=== PATIENT | male | born 1960 | race Caucasian/White ===

== ENCOUNTER 2018-10-08 08:33 | Inpatient (IN) ==
[2018-10-08] MEDS ORDERED: VANCOMYCIN 1 GM/NS 1 GM/250 ML IVPB IV ONE (09:27)
[2018-10-08] MEDS ORDERED: KEFZOL 1 GM/D5W 1 GM/50 ML IVPB IV ONE (09:28)
[2018-10-08] MEDS ORDERED: MARCAINE 0.5% PF INJ ONE (09:32)
--- NOTE | 2018-10-08 09:37 | Diag Imaging Result Doc PS360 ---
EXAM: ELBOW COMPLETE RIGHT - 10/08/2018 HISTORY: right elbow pain and swelling TECHNIQUE: Right elbow three views COMPARISON: None. FINDINGS: There is soft tissue swelling posteriorly. There is no fracture, dislocation, or distal humeral fat pad elevation identified. There are no erosive or destructive changes identified. There are early degenerative changes. IMPRESSION: Soft tissue swelling posteriorly. Early degenerative changes. No visible acute bony abnormality. Electronically signed by Alejandro Alvarado 10/08/2018 9:35 AM
--- NOTE | 2018-10-08 09:39 | Diag Imaging Result Doc PS360 ---
EXAM: FOREARM-RIGHT - 10/08/2018 HISTORY: right forearm swelling TECHNIQUE: Right forearm two views COMPARISON: None. FINDINGS: There is soft tissue swelling which is most conspicuous at the proximal dorsal forearm. There is no opaque foreign body identified. There are no bony erosive or destructive changes identified. There is no fracture identified. IMPRESSION: Soft tissue swelling. No visible acute bony abnormality. Electronically signed by Alejandro Alvarado 10/08/2018 9:37 AM
[2018-10-08 09:42] LABS: BASO# 0.05 X1000 (0.0-0.2); BASO% 0.2 % (0.0-0.8); EOS# 0.06 X1000 (0.0-0.7); EOS% 0.3 % (0.0-10.0); HEMATOCRIT 50.4 % (42.0-52.0); HEMOGLOBIN 18.1 g/dL (14.0-18.0); IMM GRAN# 0.12 X1000 (0.0-0.04); IMM GRAN% 0.5 % (0.0-0.5); LYMPH# 1.14 X1000 (1.2-3.4); LYMPH% 5.2 % (20.5-51.1); MCH 33.5 PG (27-31); MCHC 35.9 g/dL (33-37); MCV 93.3 FL (81-99); MONO# 1.17 X1000 (0.11-0.59); MONO% 5.3 % (1.7-9.3); NEUT# 19.44 X1000 (1.4-6.5); NEUT% 88.5 % (42.2-75.2); PLT 266 X1000 (130-400); RDW 11.9 % (11.5-14.5); WBC 21.98 X1000 (4.8-10.8)
[2018-10-08] MEDS ORDERED: DILAUDID IV ONE (09:42)
[2018-10-08 10:05] LABS: AGAP 16; ALB/GLOB RATIO 0.8; ALBUMIN 3.8 g/dL (3.5-5.0); ALKALINE PHOSPHATASE 153 U/L (32-122); BUN 12 mg/dL (8-22); CALCIUM 9.2 mg/dL (8.8-10.2); CHLORIDE 90 mmol/L (98-107); COSMO 278; CREATININE 0.7 mg/dL (0.7-1.2); ESTIMATED GFR > 60; GOT 13 U/L (10-34); GPT 22 U/L (10-44); POTASSIUM 4.3 mmol/L (3.5-5.1); SODIUM 130 mmol/L (136-145); TCO2 24 mmol/L (25-35); TOTAL BILIRUBIN 1.29 mg/dL (0.20-1.00); TOTAL PROTEIN 8.4 g/dL (6.3-8.3)
[2018-10-08 10:07] LABS: GLUCOSE 416 mg/dL (70-104)
--- NOTE | 2018-10-08 10:07 | PROVIDER DOCUMENTATION ---
This chart was entered by Amberly Cortez Scribe, acting as scribe for Roger Meza MD. HPI-Musculoskeletal Pain/Inj - GENERAL Chief Complaint: Extremity Pain Stated Complaint: RT ARM PAIN Time Seen by Provider: 10/08/18 08:50 Source: patient - HX OF PRESENT ILLNESS-MUSKULOSKELTAL Nature of Presenting Problem: 58 y/o male presents to the ED with complaint of swelling, redness, and pain to right upper extremity now with fever and chills/cold sweats as well as mild nausea. The patient states he was treated in [place] with Clindamycin prescribed ten days ago without improvement so this was stopped and he then received steroid injections with some improvement but not relief of symptoms. No open wound and the patient is not on blood thinners. 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 Allergy to sodium phentyiol. Quality of Pain: reports: fullness, pressure Onset/Duration: gradual Timing: still present Modifying Factors: worse with: movement Any recent injury?: No Locality of Occurance: Home Similar Symptoms Previously?: Yes Recently seen or treated by another doctor?: Yes ([place] 2 weeks and 10 days ago ) - UPPER EXTREMITY PAIN/INJURY Extremities Pain Location: forearm: right Context / Method of Injury: reports: unknown Associated Symptoms: reports: other Review of Systems - Adult - REVIEW OF SYSTEMS - ADULT Constitutional: reports: chills, fever Eyes: reports: no symptoms reported Ears, Nose, Mouth & Throat: reports: no symptoms reported Cardiovascular: denies: chest pain, palpitations, syncope Respiratory: denies: cough, hemoptysis, shortness of breath, wheezing Gastrointestinal: reports: nausea (mild). denies: diarrhea, vomiting Genitourinary: reports: no symptoms reported Musculoskeletal: reports: other (redness, warmth, swelling to right forearm). denies: back pain, neck pain Integumentary: reports: no symptoms reported Neurological: reports: no symptoms reported Psychiatric: reports: no symptoms reported Endocrine: reports: no symptoms reported Hematologic/Lymphatic: reports: no symptoms reported Allergic/Immunologic: reports: no symptoms reported All Other Systems: Reviewed and Negative Past History - Adult - PAST MEDICAL HISTORY-ADULT Review of Records: reports: Old Records Reviewed, Nursing Assessment Review, Medications Reviewed - IMMUNIZATION STATUS Childhood Immunizations: See Nurse Assessment Flu Vaccine: See Nurse Assessment - SOCIAL HISTORY Smoking: cigarettes Provider spent 3-5 mins advising pt. on dangers of tobacco.: Discussed manners to quit use, and f/u contacts for add'l counseling. Substance Use: alcohol Alcohol Use Frequency: occasionally Physical Exam-Injury Related - Physical Exam-Injury Related Initial Vital Signs Reviewed: Yes General Appearance: alert Eyes: PERRL/EOMI, pink conjunctivae Head, Ears, Nose, Mouth & Throat: normocephalic/atraumatic, moist mucous membranes, normal ENT inspection Neck: full range of motion, supple Respiratory: lungs clear, normal breath sounds. negative: crackles, rales, wheezing Cardiovascular: regular rate, rhythm, no gallop, no murmur Extremity: swelling (right upper extremity proximal and distal to elbow), tenderness (right upper extremity), other (6 x 3 cm. fluctuant area proximal right forearm). negative: normal range of motion, pulse deficit, slow capillary refill Integumentary: erythema (RUE), swelling (RUE), warm (RUE). negative: diaphoresis Neurologic: grossly normal Psych/Mental Status: normal mood/affect Progress - PLAN OF CARE/RESULTS Progress/Plan/Lab Results: 10/08/18 09:30 Gram Stain - Final Elbow - Right Orders Category Date Time Status Admit - [facility] Routine AdmDCTranf 10/08/18 11:22 Active Activity - Up Ad [place] ORDERED Care 10/08/18 11:22 Active Apply Mechanical Device [QM] ORDERED Care 10/08/18 11:22 Active Apply Mechanical Device [QM] ORDERED Care 10/08/18 11:30 Active DVT/PE Risk Assess/Protocol [QM] ORDERED Care 10/08/18 11:22 Active DVT/PE Risk Assess/Protocol [QM] ORDERED Care 10/08/18 11:30 Active FSBS/Accucheck Result Q4HR Care 10/08/18 11:22 Active I&D [I and D Set up] DIRECTED Care 10/08/18 09:20 Active Saline Loc DIRECTED Care 10/08/18 09:01 Completed Vital Signs Order Q4HR.AWAKE Care 10/08/18 11:22 Active Diabetic Diet Diet 10/08/18 11:25 Completed ELBOW COMPLETE RIGHT [RAD] Stat Exams 10/08/18 09:02 Completed FOREARM-RIGHT [RAD] Stat Exams 10/08/18 09:02 Completed BLOOD CULTURE [BLDCUL] Stat Lab 10/08/18 09:03 Results CBC WITH ELECTRONIC DIFF [HEME] Stat Lab 10/08/18 09:05 Completed COMPREHENSIVE METABOLIC PANEL [CHEM] Stat Lab 10/08/18 09:05 Completed LACTATE, PLASMA [CHEM] Stat Lab 10/08/18 09:05 Completed SED RATE [HEME] Stat Lab 10/08/18 09:05 Completed WOUND CULTURE INC GRAM STAIN [RM] Routine Lab 10/08/18 09:30 Results Acetaminophen [Tylenol] Med 10/08/18 11:22 Discontinued 650 mg PO Q6H PRN PRN Bupivacaine Pf 0.5% [Marcaine 0.5% Pf] Med 10/08/18 09:32 Discontinued 10 ml INJ NOW ONE Cefazolin 1 gm/D5w [Kefzol 1 gm/D5w] Med 10/08/18 09:28 Discontinued 1 gm in 50 ml IV NOW Hydromorphone [Dilaudid] Med 10/08/18 09:42 Discontinued 1 mg IV NOW ONE Insulin Human Regular [Humulin R] Med 10/08/18 10:08 Discontinued 10 unit IV NOW ONE Insulin Human Regular [Humulin R] Med 10/08/18 11:27 Discontinued See Protocol IV NOW ONE Nicotine Patch [Nicoderm Patch] Med 10/08/18 11:20 Discontinued 21 mg TD NOW ONE Pharmacy Order [Vancomycin IV Per Pharmacy] Med 10/08/18 11:30 Discontinued 1 each MISC DIRECTED Piperacillin/Tazobactam [Zosyn] 3.375 gm Med 10/08/18 11:30 Discontinued 0.9% Sodium Chloride Inj [Ns] 50 ml IV Q6H Vancomycin 1 gm/Ns Med 10/08/18 09:27 Discontinued 1 gm in 250 ml IV NOW Transfer/Admit Order [TRANSFER] Routine Transfer 10/08/18 13:06 Completed 1008: Blood sugar was found to be 416, will give insulin 10 units. 1037: Dr. Mazariegos came to exam the patient for admission and the patient insists on smoking. Dr. Mazariegos and myself discussed alternative options of nicotine delivery and the patient refused. Also discussed risks of uncontrolled diabetes as well as risks of ambulation after Dilaudid administration and the patient is uncooperative but states he will think about it. Result Diagrams: 10/08/18 09:05 10/08/18 09:05 - XRAY 1 XRAY: Right XRAY Study: Forearm (EXAM: FOREARM-RIGHT - 10/08/2018 HISTORY: right forearm swelling TECHNIQUE: Right forearm two views COMPARISON: None. FINDINGS: There is soft tissue swelling which is most conspicuous at the proximal dorsal forearm. There is no opaque foreign body identified. There are no bony erosive or destructive changes identified. There is no fracture identified. IMPRESSION: Soft tissue swelling. No visible acute bony abnormality. Electronically signed by [employer] 10/08/2018 9:37 AM) 2 XRAY: Right XRAY Study: Elbow (EXAM: ELBOW COMPLETE RIGHT - 10/08/2018 HISTORY: right elbow pain and swelling TECHNIQUE: Right elbow three views COMPARISON: None. FINDINGS: There is soft tissue swelling posteriorly. There is no fracture, dislocation, or distal humeral fat pad elevation identified. There are no erosive or destructive changes identified. There are early degenerative changes. IMPRESSION: Soft tissue swelling posteriorly. Early degenerative changes. No visible acute bony abnormality. Electronically signed by [employer] 10/08/2018 9:35 AM) - CONSULTS/PCP/HOSPITALIST Notification #1 *Consult/PCP/Hospitalist*: Dr. Mazariegos Time Discussed: 09:53 Reason/Comments: red, fluctuance right forearm, elevated WBC, fever, HR 104 Consult Disposition: Will see in ED Procedures - INCISION & DRAINAGE Abscess Type: Subcutaneous Anesthetic: 0.5%, Bupivicaine/Marcaine Volume of Anesthetic (ml's): 6 Blade Size: 11 Packing placed?: Yes Sterile Dressing Applied?: Yes Drainage: Large Amount (copious amount of drainage) Departure - Departure Date of Disposition Decision: 10/08/18 Time of Disposition Decision: 14:00 DIAGNOSIS: Abscess of forearm, right, Tobacco abuse disorder Uncontrolled diabetes mellitus Qualifiers: Diabetes mellitus type: type 2 Glycemic state: with hyperglycemia Qualified Code(s): E11.65 - Type 2 diabetes mellitus with hyperglycemia Disposition: ADMITTED INPATIENT 09 Certified Medical Emergency: Urgent Condition: Fair - Critical Care Note This patient required my direct & personal management of CC.: No Total Time (mins): 65 Critical Care Statement: This patient required my direct personal management to treat or rule out processes, the absence of which, could potentiallly result in sudden, clinically significant life or limb threatening deterioration. Attestation - Physician/ ITZ Attestation Patient care was provided by Advanced Practice Provider:: No The physician spent face to face time with patient:: Yes Advanced Practice Provider documentation review:: Supervising physician onsite and consulted in the evaluation and care of this patient. The physician did have a face to face encounter with the patient. This chart was documented by the indicated scribe, (Amberly Cortez, Scr gabe) and accurately reflects the services I performed and decisions made by me, Roger Meza MD, as attested by the provider's signature.
[2018-10-08] MEDS ORDERED: HUMULIN R IV ONE ×2 (10:08→11:27)
[2018-10-08] MEDS ORDERED: NICODERM PATCH TD ONE (11:20)
[2018-10-08] MEDS ORDERED: TYLENOL PO PRN (11:22)
[2018-10-08] MEDS ORDERED: VANCOMYCIN IV PER PHARMACY MISC SCH (11:30)
[2018-10-08] MEDS ORDERED: ZOSYN 3.375 GM in NS 50 ML IV SCH (11:30)
--- NOTE | 2018-10-08 12:18 | HISTORY AND PHYSICAL ---
CHIEF COMPLAINT: Right arm pain and infection. HISTORY OF PRESENT ILLNESS: This is a 58-year-old male with a several week history of right forearm and elbow pain, swelling and redness. It began after he accidentally hit his girlfriend's forehead while he was sleeping. It did not break the skin, however, it began hurting after that and swelling and turned red. An outpatient clinic prescribed clindamycin for 10 days with no improvement. As it became worse, he decided to come to the emergency room this morning. He has undergone I and D by the ER Dr. Meza with copious amounts of purulent drainage noted. A culture was obtained. He has been given a dose of vancomycin and Ancef. The pain is worsened to direct pressure and movement. It is lessened with Dilaudid. No other systemic complaints of abdominal pain, nausea, vomiting, fever, chills. PAST MEDICAL HISTORY: Diet-controlled diabetes, previous MRSA, history of testicular cancer and cancer of the lymph nodes. He has had a lymphadenectomy. PAST SURGICAL HISTORY: Lymphadenectomy I presume, orchiectomy, appendectomy. ALLERGIES: Thiopental. HOME MEDICATIONS: None. SOCIAL HISTORY: He smokes a pack per day. No alcohol or illicit drug use. FAMILY HISTORY: Reviewed and noncontributory. REVIEW OF SYSTEMS: Positive for nausea, subjective fever and chills. Otherwise, 10 systems reviewed and negative except as noted above. PHYSICAL EXAMINATION: VITAL SIGNS: Temperature 97.5 degrees, pulse 90s, respiratory rate 14 to 24, blood pressure 145/91, O2 saturation 91 to 95 percent. GENERAL: He is awake and alert, oriented x4. No acute distress. HEENT: Normocephalic, atraumatic. Extraocular muscles intact. Pupils equal, round, reactive to light. Sclerae anicteric. Moist mucous membranes. Hearing grossly normal. No oral lesions. NECK: Supple. No thyromegaly. LYMPH: No cervical, supraclavicular or periumbilical lymph nodes appreciated. CARDIOVASCULAR: Regular rate and rhythm. RESPIRATORY: Bilateral equal breath sounds. No work of breathing. GASTROINTESTINAL: Soft, nontender, nondistended. No organomegaly or mass. EXTREMITIES: No clubbing or cyanosis. He does have edema of the right proximal forearm and lower upper arm around the elbow with surrounding erythema, induration, tenderness, warmth, and purulent drainage from the I and D site just distal to the elbow. There is no crepitus noted. MUSCULOSKELETAL: Moves all extremities equally and well except for some pain and limited motion of the right arm and elbow. LABORATORY DATA: White blood cell count 22,000, hemoglobin 18, hematocrit 50, platelet count 266,000. Electrolytes noted for sodium of 130, chloride 90, BUN 12, creatinine 0.7, glucose 416, total bilirubin 1.3, alkaline phosphatase 153. IMAGING: Forearm and elbow x-rays show soft tissue swelling without bony abnormality or subcutaneous emphysema. ASSESSMENT AND PLAN: A 58-year-old male with a right arm abscess and cellulitis status post I and D in the setting of diabetes. He will be admitted and started on vancomycin and Zosyn and a sliding scale insulin. We will give him pain medicine as needed. I have instructed him not to go outside and smoke and I have offered him a nicotine patch. He has refused this and has indicated to me that he will go smoke. I have also explained to him that if his infection does not improve, then he may require further operative intervention on his arm. cc: Samson Mazariegos MD
[2018-10-08 13:43] VITALS: BP 161/79
== END 2018-10-08 14:00 | disposition left against medical advice (07) | DRG 581 ==
LOC: ED 08:33 → 4N 13:14
PROVIDERS: ADMIT Surgery; ATTEND Surgery
CPT/HCPCS: 73080; 73090; 80053; 82948; 83605; 85025; 85651; 87040; 87070; 87077; 87186; A9270; J0690; J1170; J3370; S0020; XXXXX